=== PATIENT | male | born 1980 | race African-American/Black ===

== ENCOUNTER 2023-05-13 08:47 | Emergency (ER) | payer OTHER, SELFPAY ==
[2023-05-13 08:53] VITALS: BP 168/89; PULSE 99; RESP 18; TEMP 36.8; O2SAT 97; BMI 30.1
[2023-05-13 09:41] LABS: Influenza A - CEPHEID Flu A NEGATIVE (NEGATIVE); Influenza B - CEPHEID Flu B POSITIVE (NEGATIVE); Respiratory Syncytial Virus Negative (Negative)
[2023-05-13 09:44] LABS: COVID-19 CEPHEID 4-PLEX PCR Negative (Negative)
--- NOTE | 2023-05-13 10:05 | ED_ITS ---
HPI - URI/Sore Throat General Chief Complaint: Upper Respiratory Symptoms Stated Complaint: cold t-3 Time Seen by Provider: 05/13/23 09:49 Source: patient Mode of arrival: Ambulatory Limitations: no limitations History of Present Illness HPI Narrative: 42-year-old male with no reported medical issues who started having hot and cold sensation, chills, sore throat with some hoarseness and nonproductive cough over the past 3 days. Patient has been traveling from [place] for work here locally. He states no chest pain, no shortness of breath, no passing out, he has had nausea 1 time but none since. No vomiting. No diarrhea constipation, no urinary symptoms. Patient states no daily prescription medications. No known medical issues. Denies any major surgeries. No tobacco, occasional alcohol, no recreational drugs. Patient works at the [employer]. Patient did have TheraFlu last night but has not taken any other medications. Related Data Previous Rx's Medication Instructions Recorded oseltamivir 75 mg capsule (Tamiflu) 75 mg PO BID 5 days #10 caps 05/13/23 Allergies Allergy/AdvReac Type Severity Reaction Status Date / Time No Known Drug Allergies Allergy Verified 05/13/23 08:53 Review of Systems Review of Systems ROS Unobtainable: All systems reviewed & are unremarkable except as noted in HPI and below Patient History Social History Smoking Status: Never smoker Smoking Status: Never smoker alcohol intake frequency: other Substance Use Type: does not use Exam Narrative Exam Narrative: GEN: well nourished, well appearing male, alert and oriented x 3, patient appears to be in mild distress. HEENT: Atraumatic, pupils are equal round reactive to light, extraocular movements are intact, nares are clear, Throat is clear without any exudates, erythema, tonsillar enlargement or uvular deviation HEART: Regular rate and rhythm without murmur, clicks, rubs. LUNGS:Lungs clear to auscultation, no wheezes, rales, crackles, chest moves symmetrically ABD:bowel sounds normal, soft, non-tender, no guarding, rebound, rigidity, no masses noted, no hepatosplenomegaly :No CVA tenderness MSCL: Non-tender, no muscle atrophy, muscles strength 5/5 upper and lower extremties, full range of motion, normal gait NEURO:CN 2-12 intact, sensation normal SKIN: No rash, erythema or other skin changes Initial Vital Signs Initial Vital Signs: Vital Signs Temperature 98.3 F 05/13/23 08:53 Pulse Rate 99 H 05/13/23 08:53 Respiratory Rate 18 05/13/23 08:53 Blood Pressure 168/89 H 05/13/23 08:53 Pulse Oximetry 97 05/13/23 08:53 Oxygen Delivery Method Room Air 05/13/23 08:53 Course Orders Ordered: ED Orders 05/13/23 09:00 Covid-19 + FLU A/B + RSV - PCR Stat Vital Signs Vital signs: Vital Signs - 8 hr 05/13/23 08:53 Temperature 98.3 F Pulse Rate 99 H Respiratory Rate 18 Blood Pressure 168/89 H Pulse Oximetry 97 Oxygen Delivery Method Room Air MDM - URI/Sore Throat Lab Data Labs: Lab Results 05/13/23 Range/Units 09:00 SARS-CoV-2 (PCR) Negative (Negative) Influenza A (RT-PCR) Flu a negative (NEGATIVE) Influenza B (RT-PCR) Flu b positive H (NEGATIVE) RSV (PCR) Negative (Negative) MDM Narrative Medical decision making narrative: 42-year-old male with symptoms consistent with viral illness. Patient tested positive for influenza B. Otherwise appears healthy. Patient and I discussed Tamiflu, discussed that it likely would be minimally helpful for symptoms but he would like a prescription. Discussed return precautions. Discharge Plan Departure Patient Disposition: Home Clinical Impression: Influenza B Instructions: DI for Influenza -- Adult Activity Restrictions/Additional Instructions: You have tested positive for influenza B today. This is a viral infection that typically last 7-10 days. You can take Tylenol and/or ibuprofen as needed for fevers and muscle aches. You can use [id number] medications for symptom relief. [facility] Tamiflu [facility] [place]. This typically only shortened or symptoms by about 18 hours out of a 10 day course. Please return for new chest pain, shortness of breath, passing out, persistent vomiting, new swelling in her extremities or other new or concerning changes. Prescriptions: New oseltamivir [Tamiflu] 75 mg capsule 75 mg PO BID 5 Days Qty: 10 0RF Stand Alone Forms: Patient Portal/API, Work Release Note
== END 2023-05-13 10:11 | disposition home or self-care (01) ==
PROVIDERS: Emergency Provider Emergency Medicine; Referring Provider Emergency Medicine
DX: J10.1 Influenza due to other identified influenza virus with other respiratory manifestations (principal)
CPT/HCPCS: 0241U; 99281; 99282